=== PATIENT | female | born 1980 | race Caucasian/White ===

== ENCOUNTER 2018-01-11 11:48 | Emergency (ER) | payer SELFPAY ==
[~2018-01-11] VITALS: Ht 154.9 cm; Wt 66.7 kg
[2018-01-11 12:46] LABS: APPEARANCE SL.HAZY ((CLEAR)); BILIRUBIN NEGATIVE; BLOOD NEGATIVE; COLOR YELLOW ((YELLOW)); GLUCOSE (STRIP) NEGATIVE; KETONES NEGATIVE; LEUKOCYTES LARGE; NITRITE NEGATIVE; PROTEIN (STRIP) NEGATIVE; SPECIFIC GRAVITY 1.018 (1.000-1.030); UROBILINOGEN 0.2 MG/DL (0.2-1.0)
[2018-01-11 12:51] LABS: BACTERIA NONE SEEN /HPF; EPITHELIAL CELLS RARE /HPF; MUCUS TRACE /LPF; RED BLOOD CELLS 15-20 /HPF (0-5); UCUL ADDED? YES
[2018-01-11] MEDS ORDERED: DIFLUCAN150 MG PO (13:18)
[2018-01-11 13:22] VITALS: BP 127/87
== END 2018-01-11 13:20 | disposition home or self-care (01) ==
LOC: EME 11:48
PROVIDERS: Nurse Practitioner Family
DX: L29.3 Anogenital pruritus, unspecified (principal); Z86.19 Personal history of other infectious and parasitic diseases; Z98.51 Tubal ligation status; R51 Headache
CPT/HCPCS: 81003; 81025; 87086; 99281; 99283